=== PATIENT | female | born 1955 | race African-American/Black ===

== ENCOUNTER 2021-12-25 13:08 | Inpatient (IN) ==
[2021-12-25] MEDS ORDERED: SODIUM CHLORIDE 0.9% 1,000 ML IV STA (16:29)
[2021-12-25 16:56] LABS: Eosinophils # 0.2 10*3/uL (0.0-0.87); Eosinophils % 12.7 % (0.00-10.9); Hematocrit 41.5 VOL% (35.7-47.0); Hemoglobin 13.1 GM/DL (12.0-16.0); Immature Granulocytes % 6.7 %; Immature Granulocytes Absolute 0.09 #; Lymphocytes # 0.6 10*3/uL (1.4-4.0); Mean Corpuscular HGB Conc 31.6 GM/DL (32-36); Mean Corpuscular Volume 98.1 FL (87-102); Monocytes # 0.2 10*3/uL (0.11-0.8); Monocytes % 17.9 % (1.7-12.7); Neutrophils % 18.7 % (38.7-73.9); Platelet Count 49 T/CUMM (130-400); Red Blood Count 4.23 MC/CUMM (3.8-5.5); Red Cell Distribution Width 19.8 % (9.3-17.3); White Blood Count 1.3 T/CUMM (4-12)
[2021-12-25 17:06] LABS: INR 1.9; PT Patient Result 19.8 SECS (10.5-12.0); Partial Thromboplastin Time 31.6 SECS (23.8-32.1)
[2021-12-25 17:11] LABS: Alanine Aminotransferase 16 U/L (13-56); Albumin 2.9 G/DL (3.4-5.0); Alkaline Phosphatase 105 U/L (45-117); Amylase 17 U/L (25-115); Aspartate Amino Transferase 15 U/L (0-37); Blood Urea Nitrogen 44 MG/DL (7-18); Calcium 9.4 MG/DL (8.5-10.1); Carbon Dioxide 20 MMOL/L (21-32); Chloride 108 MMOL/L (98-107); Glucose 106 MG/DL (74-106); Osmolality,Calculated 283.8 MOS/KG (273-304); Potassium 3.8 MMOL/L (3.5-5.1); Sodium 137 MMOL/L (136-145); Total Protein 7.5 G/DL (6.4-8.2)
[2021-12-25] MEDS ORDERED: ONDANSETRON 4 MG/2 ML VIAL IV PRN (18:14)
[2021-12-25] MEDS ORDERED: hydrALAZINE 20 MG/1 ML VIAL IV PRN (18:14)
[2021-12-25] MEDS ORDERED: ACETAMINOPHEN 325 MG TABLET PO PRN (18:14)
[2021-12-25] MEDS ORDERED: ALBUTEROL 2.5 MG/3 ML NEB RESP TX PRN (18:14)
[2021-12-25] MEDS ORDERED: GLUCAGON 1 MG VIAL IM PRN (18:14)
[2021-12-25] MEDS ORDERED: DEXTROSE 10% 250 ML BAG IV PRN (18:31)
[2021-12-25] MEDS: LACTATED RINGERS 1,000 ML IV SCH (18:51)
[2021-12-25 19:31] LABS: Eosinophils 13 % (0-10); Lymphocytes 48 % (20-55); Metamyelocytes 5 %; Nucleated Red Blood Cells 2 (0-5); Total Cells Counted 100
[2021-12-25 19:32] LABS: Atypical Lymphocytes 1+; Burr Cells Few; Microcytosis Slight; Platelet Estimate Decreased; Tear Drop Cells Few
[2021-12-26 05:05] LABS: Bacteria,Urine Occasional /HPF (Few); Glucose,Urine (UA) Negative (Negative); Mucus,Urine Occasional /LPF (Occasional); Protein,Urine 30 mg/dL (Negative); RBC,Urine 1 /HPF (0-4); Urine Appearance Clear (Clear); Urine Color Yellow (Yellow); Urine Specific Gravity 1.015 (1.001-1.035)
[2021-12-26 05:06] LABS: Bilirubin,Urine Negative (Negative); Blood, Urine Negative (Negative); Ketones,Urine Negative (Negative); Nitrite,Urine Negative (Negative); Urine Urobilinogen 0.2 eU/dL (<2.0)
[2021-12-26 06:21] LABS: Calcium 9.1 MG/DL (8.5-10.1); Osmolality,Calculated 283.5 MOS/KG (273-304); Potassium 3.8 MMOL/L (3.5-5.1); Risk Ratio 2.59; Thyroid Stimulating Hormone 3.03 uIU/ml (0.358-3.74)
[2021-12-26] MEDS: PANTOPRAZOLE 40 MG TABLET PO SCH (06:23)
[2021-12-26 06:58] LABS: Eosinophils # 0.3 10*3/uL (0.0-0.87); Eosinophils % 9.8 % (0.00-10.9); Hematocrit 21.6 VOL% (35.7-47.0); Immature Granulocytes % 6.3 %; Immature Granulocytes Absolute 0.18 #; Lymphocytes # 1.2 10*3/uL (1.4-4.0); Lymphocytes % 40.1 % (21.3-54.2); Mean Corpuscular HGB Conc 31.5 GM/DL (32-36); Monocytes # 0.4 10*3/uL (0.11-0.8); Monocytes % 14.3 % (1.7-12.7); Neutrophils % 29.5 % (38.7-73.9); Platelet Count 54 T/CUMM (130-400); Red Blood Count 2.16 MC/CUMM (3.8-5.5); Red Cell Distribution Width 19.3 % (9.3-17.3); White Blood Count 2.9 T/CUMM (4-12)
[2021-12-26 07:03] LABS: Hemoglobin 6.8 GM/DL (12.0-16.0)
[2021-12-26] MEDS ORDERED: SODIUM CHLORIDE 0.9% 1,000 ML IV PRN ×2 (08:01→09:06)
[2021-12-26 08:49] LABS: Hematocrit 23.6 VOL% (35.7-47.0); Hemoglobin 7.4 GM/DL (12.0-16.0)
[2021-12-26] MEDS ORDERED: amLODIPine 5 MG TABLET PO SCH (09:00)
[2021-12-26] MEDS ORDERED: FILGRASTIM-SNDZ 300 MCG/0.5 ML SYRINGE SUBCUT ONE (09:06)
[2021-12-26] MEDS: valACYclovir 500 MG TABLET PO SCH (10:04)
[2021-12-26] MEDS: ASPIRIN EC 81 MG TABLET PO SCH (10:05)
[2021-12-26] MEDS: SODIUM BICARBONATE 650 MG TABLET PO SCH ×3 (10:05→20:41)
[2021-12-26] MEDS: LACTATED RINGERS 1,000 ML IV SCH ×2 (10:21→14:14)
[2021-12-26 17:57] LABS: Hematocrit 29.5 VOL% (35.7-47.0); Hemoglobin 9.4 GM/DL (12.0-16.0)
[2021-12-26] MEDS: cefTRIAXone 1,000 MG in SODIUM CHLORIDE 0.9% 100 ML IV SCH (18:41)
[2021-12-27] MEDS: PANTOPRAZOLE 40 MG TABLET PO SCH (06:11)
[2021-12-27] MEDS: LACTATED RINGERS 1,000 ML IV SCH (06:12)
[2021-12-27 06:31] LABS: Calcium 8.9 MG/DL (8.5-10.1); Osmolality,Calculated 282.3 MOS/KG (273-304); Potassium 3.4 MMOL/L (3.5-5.1)
[2021-12-27] MEDS ORDERED: POTASSIUM CHLORIDE 20 MEQ TABLET PO ONE (07:00)
[2021-12-27 07:22] LABS: Basophils % 0.4 % (0.0-0.8); Eosinophils # 0.2 10*3/uL (0.0-0.87); Hematocrit 27.3 VOL% (35.7-47.0); Hemoglobin 8.7 GM/DL (12.0-16.0); Immature Granulocytes % 6.3 %; Immature Granulocytes Absolute 0.46 #; Lymphocytes # 1.6 10*3/uL (1.4-4.0); Lymphocytes % 21.9 % (21.3-54.2); Mean Corpuscular HGB Conc 31.9 GM/DL (32-36); Mean Corpuscular Volume 93.2 FL (87-102); Monocytes # 0.8 10*3/uL (0.11-0.8); Monocytes % 11.2 % (1.7-12.7); Neutrophils % 57.2 % (38.7-73.9); Platelet Count 93 T/CUMM (130-400); Red Blood Count 2.93 MC/CUMM (3.8-5.5); Red Cell Distribution Width 22.5 % (9.3-17.3); White Blood Count 7.3 T/CUMM (4-12)
[2021-12-27 08:07] LABS: Band Neutrophils 1 % (0-10); Eosinophils 6 % (0-10); Lymphocytes 26 % (20-55); Platelet Estimate Decreased; Total Cells Counted 100
[2021-12-27 08:08] LABS: Hypochromia Slight; Ovalocytes Slight
[2021-12-27] MEDS: SODIUM BICARBONATE 650 MG TABLET PO SCH (09:30)
[2021-12-27] MEDS: valACYclovir 500 MG TABLET PO SCH (09:30)
[2021-12-27] MEDS: ASPIRIN EC 81 MG TABLET PO SCH (09:32)
[2021-12-27 12:28] VITALS: BP 107/57
[2021-12-27] MEDS: cefTRIAXone 1,000 MG in SODIUM CHLORIDE 0.9% 100 ML IV SCH (15:20)
== END 2021-12-27 14:28 | disposition home or self-care (01) | DRG 809 ==
LOC: N.ED 13:08 → SUATTDRO 18:14 → N.EDINP 18:14 → N.TELES 23:39
PROVIDERS: ADMIT Internal Medicine; ATTEND Internal Medicine